=== PATIENT | male | born 1945 | race Caucasian/White ===

== ENCOUNTER 2017-05-04 14:36 | Emergency (ER) | payer OTHER ==
[~2017-05-04] VITALS: Wt 85.0 kg
[~2017-05-04 14:36] MED LIST: ATOR10TA65 PO; GABA300C16 PO; GLIP10TA95 PO; IBUP-1542 PO; LEVE500T8 PO; LISI20TA11 PO; MECL25TA2 PO; MELO-110 PO; MTF1000T PO; OMEP40CA6 PO
[2017-05-04] MEDS ORDERED: SOD CHLORIDE 0.9% 1,000 ML IV STA (14:49)
[2017-05-04] MEDS ORDERED: LEVETIRACETAM 500 MG (PMX) 100 ML IVPB ONE (15:00)
[2017-05-04 15:01] LABS: ADD SCAN DIFF NO
[2017-05-04 15:03] LABS: BASOPHIL # 0.1 10^3/ul (0.0-0.1); BASOPHILS % 0.7 % (0.0-2.0); EOSINOPHILS # 0.1 10^3/ul (0.0-0.5); EOSINOPHILS % 1.7 % (0.0-7.0); HEMATOCRIT 39.7 % (42.0-52.0); HEMOGLOBIN 14.1 g/dl (14.0-18.0); LYMPHOCYTES # 3.2 10^3/ul (0.8-2.9); LYMPHOCYTES % 37.6 % (15.0-51.0); MEAN CORPUSCULAR HEMOGLOBIN 30.9 pg (29.0-33.0); MEAN CORPUSCULAR HGB CONC 35.5 g/dl (32.0-37.0); MEAN CORPUSCULAR VOLUME 87.1 fl (82.0-101.0); MEAN PLATELET VOLUME 9.1 fl (7.4-10.4); MONOCYTE # 0.5 10^3/ul (0.3-0.9); MONOCYTES % 5.7 % (0.0-11.0); NEUTROPHIL # 4.5 10^3/ul (1.6-7.5); NEUTROPHILS % 53.7 % (39.0-77.0); PLATELET COUNT 244 10^3/UL (140-415); RED BLOOD COUNT 4.56 10^6/ul (4.70-6.10); RED CELL DISTRIBUTION WIDTH 12.8 % (11.5-14.5); WHITE BLOOD COUNT 8.4 10^3/ul (4.8-10.8)
[2017-05-04 15:26] LABS: ALANINE AMINOTRANSFERASE 39 IU/L (13-69); ALBUMIN 4.5 g/dl (3.3-4.9); ALBUMIN/GLOBULIN RATIO 1.66; ALKALINE PHOSPHATASE 120 IU/L (42-121); ANION GAP 23 (8-16); ASPARTATE AMINO TRANSFERASE 35 IU/L (15-46); BILIRUBIN,INDIRECT 0.1 mg/dl (0-1.1); BILIRUBIN,TOTAL 0.1 mg/dl (0.2-1.3); BLOOD UREA NITROGEN 11 mg/dl (7-20); CALCIUM 8.8 mg/dl (8.4-10.2); CARBON DIOXIDE 16 mmol/L (21-31); CHLORIDE 105 mmol/L (97-110); CREATININE 0.96 mg/dl (0.61-1.24); GLUCOSE 227 mg/dl (70-220); POTASSIUM 3.6 mmol/L (3.5-5.1); SODIUM 140 mmol/L (135-144); TOTAL PROTEIN 7.2 g/dl (6.1-8.1)
[2017-05-04 15:30] LABS: ETHANOL < 10.0 mg/dl
--- NOTE | 2017-05-04 15:40 | RADRPT ---
PROCEDURE: CT Brain without contrast. CLINICAL INDICATION: Rule out intracranial hemorrhage TECHNIQUE: CT scan of the brain was performed on a multidetector high-resolution CT scan. Axial im aging was obtained of the brain without contrast administration. Coronal and sagittal reformatted i mages were obtained from the axial source images. Standard CT scan of the head without contrast prot ocols were performed. The total exam CTDI equals 43.58 mGy and the total exam DLP equals 630.2 mGy-cm. One or more of the following dose reduction techniques were used: - Automated exposure control. - Adjustment of the mA and/or kV according to patient size. Use of iterative reconstruction technique. COMPARISON: CT scan of the head 03/23/2016 FINDINGS: There is no significant interval change. Again noted is encephalomalacia involving the right left f rontal lobes more extensive on the right as well as the inferior posterior right temporal lobe. No evidence of intracranial hemorrhages. Negative for intracranial masses. Mild generalized cerebral volume loss. Mild nonspecific chronic microvascular ischemic changes. The gonzalez-white matter juncti on is otherwise unremarkable. The bones and calvarium are intact. The paranasal sinuses visualized are unremarkable. The mastoids are unremarkable. IMPRESSION: 1. No significant change. 2. No evidence of intracranial masses hemorrhages or midline shift. 3. Encephalomalacia involving both frontal lobes more extensive on the right and right temporal lob e. 4. Mild generalized cerebral volume loss and nonspecific chronic microvascular ischemic disease. RPTAT:AAJJ Physician Juan David Date Time Electronically viewed and signed by Physician Juan David on 05/04/2017 15:40 BM/
[2017-05-04 15:43] LABS: TROPONIN-I < 0.012 ng/ml (0.00-0.12)
[2017-05-04] MEDS ORDERED: LEVE-5 PO (15:48)
--- NOTE | 2017-05-04 16:36 | ERD ---
ER Documentation Chief Complaint Date/Time DATE: 05/04/17 TIME: 16:34 Chief Complaint WITNESSED SEIZURE WHILE ON BUS. NO TRAUMA. POSTICTAL ON ARRIVAL. HPI 8-year-old man brought in by EMS for tonic-clonic seizure activity which occurred on a public transportation bus. Patient does have a history of seizure disorder and is noncompliant with his Keppra. Patient also has a history of alcoholism but denies recent alcohol abuse. The episode was witnessed there was no head or neck injury, no bleeding, no loss of bowel or bladder control. Patient denies chest pain or shortness of breath and was transported here by EMS without further complications. ROS All systems reviewed and are negative except as per history of present illness. Medications Home Meds Active Scripts Levetiracetam* (Keppra*) 500 Mg Tablet, 500 MG PO BID, #60 TAB Prov:CEZAR PATEL MD 05/04/17 Ibuprofen* (Motrin*) 600 Mg Tab, 600 MG PO Q6H Y for PAIN AND OR ELEVATED TEMP, #30 TAB Prov:RONAN SETHI PA-C 06/13/16 Meclizine Hcl* (Antivert*) 25 Mg Tablet, 25 MG PO TID, #20 TAB Prov:CEZAR PATEL MD 03/23/16 Reported Medications Omeprazole* (Omeprazole*) 40 Mg Capsule.dr, 40 MG PO DAILY, #30 CAP 11/11/15 Levetiracetam* (Levetiracetam*) 500 Mg Tablet, 500 MG PO BID, TAB 11/11/15 Meloxicam* (Mobic*) 15 Mg Tablet, 15 MG PO DAILY, #30 TAB 11/11/15 Gabapentin* (Gabapentin*) 300 Mg Capsule, 300 MG PO QHS, #60 CAP 11/11/15 Atorvastatin Calcium (Atorvastatin Calcium) 10 Mg Tablet, 10 MG PO QHS, #30 TAB 11/11/15 Lisinopril* (Lisinopril*) 20 Mg Tablet, 20 MG PO DAILY, #30 TAB 11/11/15 Metformin* (Glucophage*) 1,000 Mg Tablet, 1000 MG PO BID 11/11/13 Glipizide* (Glucotrol*) 10 Mg Tablet, 10 MG PO BID 11/11/13 Allergies Allergies: Coded Allergies: No Known Drug Allergies (Verified Allergy, Unknown, 05/04/17) PMhx/Soc Alcohol abuse, seizure disorder, hypertension, diabetes mellitus History of Surgery: No Anesthesia Reaction: No Hx Neurological Disorder: No Hx Respiratory Disorders: No Hx Cardiac Disorders: No Hx Psychiatric Problems: No Hx Miscellaneous Medical Probl: No Hx Alcohol Use: No Hx Substance Use: No Hx Tobacco Use: No Smoking Status: Never smoker FmHx Family History: diabetes Physical Exam Vitals Vital Signs Date Time Temp Pulse Resp B/P Pulse Ox O2 Delivery O2 Flow Rate FiO2 05/04/17 16:52 81 18 123/71 05/04/17 14:43 98.5 101 21 166/75 95 Physical Exam GENERAL: Well-developed, well-nourished, appears postictal, afebrile HEENT: Moist mucous membranes, pink conjunctiva, no cervical spine tenderness or step-off deformities, no goiter, no jaundice or icterus, extraocular movements intact without pain. No submandibular induration, and no pharyngeal erythema NEURO: Alert and oriented 2, appears postictal, no nystagmus, cranial nerves II through XII intact bilaterally, pupils equal round reactive to light, no focal deficits or facial asymmetry, sensation intact distally Strength 5/5 in upper and lower extremities bilaterally CARDIAC: Tachycardic and regular, no murmurs rubs or gallops LUNGS: Clear bilaterally no wheezing crackles or stridor ABDOMEN: Soft nontender, no guarding, no rigidity, no rebound, no psoas sign no obturator sign. Normoactive bowel sounds SKIN: Warm and dry to touch, no abrasions, contusions, or hematomas, no lacerations, no ecchymosis, no target lesions, and without ulcers EXTREMITIES: No clubbing cyanosis or edema, calves are bilaterally symmetrical, no Homans sign, no popliteal cord sign. Distal pulses equal and bilateral PSYCH: Normal affect without agitation or irritability Result Diagram: 05/04/17 1452 05/04/17 1452 Results 24 hrs Laboratory Tests Test 05/04/17 14:52 White Blood Count 8.410^3/ul Red Blood Count 4.5610^6/ul Hemoglobin 14.1g/dl Hematocrit 39.7% Mean Corpuscular Volume 87.1fl Mean Corpuscular Hemoglobin 30.9pg Mean Corpuscular Hemoglobin Concent 35.5g/dl Red Cell Distribution Width 12.8% Platelet Count 19130^3/UL Mean Platelet Volume 9.1fl Neutrophils % 53.7% Lymphocytes % 37.6% Monocytes % 5.7% Eosinophils % 1.7% Basophils % 0.7% Nucleated Red Blood Cells % 0.0/100WBC Neutrophils # 4.510^3/ul Lymphocytes # 3.210^3/ul Monocytes # 0.510^3/ul Eosinophils # 0.110^3/ul Basophils # 0.110^3/ul Nucleated Red Blood Cells # 0.010^3/ul Sodium Level 140mmol/L Potassium Level 3.6mmol/L Chloride Level 105mmol/L Carbon Dioxide Level 16mmol/L Anion Gap 23 Blood Urea Nitrogen 11mg/dl Creatinine 0.96mg/dl Glucose Level 227mg/dl Calcium Level 8.8mg/dl Total Bilirubin 0.1mg/dl Direct Bilirubin 0.00mg/dl Indirect Bilirubin 0.1mg/dl Aspartate Amino Transf (AST/SGOT) 35IU/L Alanine Aminotransferase (ALT/SGPT) 39IU/L Alkaline Phosphatase 120IU/L Troponin I < 0.012ng/ml Total Protein 7.2g/dl Albumin 4.5g/dl Globulin 2.70g/dl Albumin/Globulin Ratio 1.66 Lipase 97U/L Ethyl Alcohol Level < 10.0mg/dl Current Medications Medications (Trade) Dose Ordered Sig/Yara Route PRN Reason Start Time Stop Time Status Last Admin Dose Admin Sodium Chloride 1,000 ml @ 1,000 mls/hr Q1H STAT IV 05/04/17 14:49 05/04/17 15:48 DC 05/04/17 14:53 Levetiracetam (Keppra 500 Mg/ 100ml (Pmx)) 100 ml @ 400 mls/hr ONCE ONCE IVPB 05/04/17 15:00 05/04/17 15:14 DC 05/04/17 15:36 Procedures/MDM IV line was established patient was placed on photogrammetric stereo compiler rhythm strip revealed a sinus tachycardia at 110 bpm with upright P and T waves. Patient was afebrile. I administered 1 L normal saline intravenously, and Keppra [address] scan of the brain was negative for acute bleed mass or shift. EKG performed, read by me: 78 bpm, normal sinus rhythm, normal axis, no acute ST segment changes, narrow QRS complex, with good R-wave progression in precordial leads. CBC and electrolytes were normal, liver function tests were normal, troponin was negative, ethanol level was negative. Observation Note: Time: 3-1/2 hours Family Hx: No Hypertension Evaluation: Multiple exams showed improving symptoms and no evidence of worsening mental status or seizure activity. Differential diagnoses considered, included but not limited to acute coronary syndrome, pulmonary embolism, aortic dissection, abdominal aortic aneurysm, sepsis, stroke, meningitis, encephalitis, pneumonia, appendicitis, cholecystitis , bowel obstruction, pyelonephritis, nephrolithiasis, cystitis, as well as metabolic, hematologic, and electrolyte abnormalities. As well as abscess, cellulitis, fractures, and dislocations. Patient feels much better at this time, and vital signs are normal, symptoms have improved. I did give strict instructions to return to the ED if symptoms continue or worsen, patient will otherwise follow-up with primary care physician. Patient understood instructions and agreed to plan. Disclaimer: Inadvertent spelling or grammatical errors are likely due to EHR/ dictation software use and do not reflect on the overall quality of patient care. Departure Diagnosis: Primary Impression: Seizure disorder Condition: Good Patient Instructions: Seizure, Recurrent [Adult] CEZAR PATEL MD May 04, 2017 16:36
[2017-05-04 16:52] VITALS: BP 123/71; PULSE 81; RESP 18
== END 2017-05-04 16:54 | disposition home or self-care (01) ==
LOC: E/R 14:36
DX: G40.909 Epilepsy, unspecified, not intractable, without status epilepticus (principal); I10 Essential (primary) hypertension; E11.9 Type 2 diabetes mellitus without complications; R93.0 Abnormal findings on diagnostic imaging of skull and head, not elsewhere classified; Z79.84 Long term (current) use of oral hypoglycemic drugs
CPT/HCPCS: 36415; 70450; 80053; 80306; 83690; 84484; 85025; 93005; 96374; 99285; J1953; J7030

== ENCOUNTER 2018-10-05 12:36 | Emergency (ER) | END 2018-10-05 17:29 | disposition home or self-care (01) ==